=== PATIENT | female | born 1995 | race African-American/Black ===

== ENCOUNTER 2017-04-27 11:02 | Emergency (ER) | payer OTHER ==
[~2017-04-27] VITALS: Ht 157.5 cm; Wt 49.9 kg
[2017-04-27] MEDS ORDERED: PEPCID20 MG PO (11:17)
[2017-04-27] MEDS ORDERED: PREDNISONE 20 M20 MG PO (11:17)
[2017-04-27] MEDS ORDERED: BENADRYL25 MG PO (11:23)
== END 2017-04-27 11:38 | disposition home or self-care (01) ==
LOC: ER 11:02
DX: L23.9 Allergic contact dermatitis, unspecified cause (principal)

== ENCOUNTER 2017-10-18 10:04 | Emergency (ER) | payer OTHER ==
[~2017-10-18] VITALS: Ht 157.5 cm; Wt 41.7 kg
[~2017-10-18 10:04] MED LIST: BENADRYL25 MG PO; PEPCID20 MG PO; PREDNISONE 20 M20 MG PO
[2017-10-18 10:11] VITALS: BP 106/61
[2017-10-18] MEDS ORDERED: SUDAFED 12-HOU120 MG PO (11:04)
== END 2017-10-18 11:09 | disposition home or self-care (01) ==
LOC: ER 10:04
DX: H69.91 Unspecified Eustachian tube disorder, right ear (principal); H61.23 Impacted cerumen, bilateral

== ENCOUNTER 2018-03-26 16:37 | Emergency (ER) | payer OTHER ==
[~2018-03-26] VITALS: Ht 157.5 cm; Wt 42.2 kg
[~2018-03-26 16:37] MED LIST changes: +SUDAFED 12-HOU120 MG PO
[2018-03-26] MEDS ORDERED: BACTRIM DS TAB1 EACH PO (18:30)
[2018-03-26] MEDS ORDERED: IBUPROFEN 600600 M1 PO (18:30)
[2018-03-26] MEDS ORDERED: HYDROCODONE-AP1 EAC6 PO (18:30)
[2018-03-26 18:42] VITALS: BP 110/62
== END 2018-03-26 18:43 | disposition home or self-care (01) ==
LOC: ER 16:37
DX: L02.31 Cutaneous abscess of buttock (principal)

== ENCOUNTER 2018-06-19 02:56 | Emergency (ER) | payer OTHER ==
[~2018-06-19] VITALS: Ht 157.5 cm; Wt 44.0 kg
[~2018-06-19 02:56] MED LIST changes: +BACTRIM DS TAB1 EACH PO; +HYDROCODONE-AP1 EAC6 PO; +IBUPROFEN 600600 M1 PO
[2018-06-19] MEDS ORDERED: NOHOMEMEDICATIONS (03:05)
[2018-06-19 03:28] LABS: URINE BILIRUBIN NEGATIVE (Negative); URINE BLOOD NEGATIVE (Negative); URINE CLARITY CLEAR; URINE COLOR YELLOW; URINE GLUCOSE-RANDOM* NEGATIVE (Negative); URINE KETONES NEGATIVE (Negative); URINE LEUKOCYTES-REFLEX NEGATIVE (Negative); URINE NITRITE-REFLEX NEGATIVE (Negative); URINE PROTEIN (DIPSTICK) 1+ (Negative); URINE SPECIFIC GRAVITY 1.025 (1.005-1.035); URINE UROBILINOGEN 0.2 E.U./dl (0.2-1.0)
[2018-06-19 03:29] LABS: ABSOLUTE NEUTROPHILS 3.3 thou/uL (1.4-8.2); BASOPHILS 0.6 % (0.0-2.0); EOSINOPHILS 1.3 % (0.0-3.0); HEMATOCRIT 39.6 % (37.0-47.0); HEMOGLOBIN 13.1 gm/dL (12.0-15.0); MCH 28.1 pg (26.0-34.0); MCHC 33.1 g/dL (28.0-37.0); MONOCYTES 9.3 % (1.0-8.0); PLATELET COUNT 176 thou/uL (150-400); POLYS 54.8 % (36.0-66.0); RBC 4.66 mil/uL (4.20-5.00); RDW 13.2 % (10.5-14.5)
[2018-06-19 03:35] LABS: BACTERIA-REFLEX 1-9 Few /HPF (None Seen); CASTS None Seen /LPF (None Seen); CRYSTALS None Seen /LPF (None Seen); MUCUS 4-6 Moderate strn/LPF (None Seen); SQUAMOUS 4-10 Moderate /LPF (0-3); URINE RBC 0-2 Rare /HPF (0-2); URINE WBC-REFLEX 0-5 Rare /HPF (0-5)
[2018-06-19 03:35] LABS: ANION GAP 8 mmol/L (7-16); BUN 18 mg/dL (7-18); CALCIUM 9.5 mg/dL (8.5-10.1); CHLORIDE 102 mmol/L (98-107); CO2 28 mmol/L (21-32); CREATININE 0.6 mg/dL (0.6-1.0); GLUCOSE 99 mg/dL (74-106); POTASSIUM 3.7 mmol/L (3.5-5.1); SODIUM 138 mmol/L (136-145)
[2018-06-19 03:40] LABS: AMP/METHAMP Negative (Negative); BARBITURATES Negative (Negative); BENZODIAZEPINES Negative (Negative); COCAINE Negative (Negative); METHADONE Negative (Negative); OPIATES Negative (Negative); PCP Negative (Negative)
[2018-06-19 03:41] LABS: ALBUMIN 4.2 g/dL (3.4-5.0); DIRECT BILIRUBIN < 0.1 mg/dL (<0.1-0.3); SGOT 24 U/L (15-37); SGPT 17 U/L (30-65); TOTAL BILIRUBIN 0.3 mg/dL (<0.1-1.0); TOTAL PROTEIN 7.8 g/dL (6.4-8.2)
[2018-06-19 06:47] VITALS: BP 104/55
== END 2018-06-19 08:31 | disposition home or self-care (01) ==
LOC: ER 02:56
PROVIDERS: Student in an Organized Health Care Education/Training Program
DX: O9A.211 Injury, poisoning and certain other consequences of external causes complicating pregnancy, first trimester (principal); S10.83XA Contusion of other specified part of neck, initial encounter; R10.12 Left upper quadrant pain; Z91.018 Allergy to other foods; Z3A.01 Less than 8 weeks gestation of pregnancy; Y04.2XXA Assault by strike against or bumped into by another person, initial encounter; Y92.89 Other specified places as the place of occurrence of the external cause; Y93.89 Activity, other specified; Y99.8 Other external cause status

== ENCOUNTER 2018-08-01 19:18 | Emergency (ER) | payer OTHER ==
[~2018-08-01] VITALS: Ht 157.5 cm; Wt 44.5 kg
[~2018-08-01 19:18] MED LIST changes: +NOHOMEMEDICATIONS
[2018-08-01] MEDS ORDERED: PRENATAL PO (19:24)
[2018-08-01 20:00] LABS: ABSOLUTE NEUTROPHILS 7.1 thou/uL (1.4-8.2); BASOPHILS 0.4 % (0.0-2.0); EOSINOPHILS 0.6 % (0.0-3.0); HEMATOCRIT 39.2 % (37.0-47.0); HEMOGLOBIN 13.4 gm/dL (12.0-15.0); LYMPHOCYTES 15.5 % (24.0-44.0); MCH 28.8 pg (26.0-34.0); MCV 84.7 fL (80.0-100.0); MONOCYTES 7.6 % (1.0-8.0); PLATELET COUNT 177 thou/uL (150-400); POLYS 75.9 % (36.0-66.0); RBC 4.63 mil/uL (4.20-5.00); RDW 13.1 % (10.5-14.5); WBC 9.3 thou/uL (4.0-11.0)
[2018-08-01 20:02] LABS: URINE BILIRUBIN NEGATIVE (Negative); URINE BLOOD TRACE (Negative); URINE CLARITY CLEAR; URINE COLOR YELLOW; URINE GLUCOSE-RANDOM* NEGATIVE (Negative); URINE KETONES 3+ (Negative); URINE LEUKOCYTES NEGATIVE (Negative); URINE NITRITE NEGATIVE (Negative); URINE PROTEIN (DIPSTICK) TRACE (Negative); URINE SPECIFIC GRAVITY >= 1.030 (1.005-1.035); URINE UROBILINOGEN 0.2 E.U./dl (0.2-1.0)
[2018-08-01 20:05] LABS: CALCIUM 10.2 mg/dL (8.5-10.1); CREATININE 0.5 mg/dL (0.6-1.0); POTASSIUM 3.8 mmol/L (3.5-5.1)
[2018-08-01 20:11] LABS: ALBUMIN 3.9 g/dL (3.4-5.0); TOTAL BILIRUBIN 0.5 mg/dL (<0.1-1.0); TOTAL PROTEIN 7.8 g/dL (6.4-8.2)
[2018-08-01] MEDS ORDERED: REGLAN 5 MG TAB5 MG PO (21:56)
[2018-08-01 22:09] VITALS: BP 103/57
== END 2018-08-01 22:33 | disposition home or self-care (01) ==
LOC: ER 19:18
PROVIDERS: Emergency Medicine
DX: O21.0 Mild hyperemesis gravidarum (principal); Z3A.13 13 weeks gestation of pregnancy

== ENCOUNTER 2018-08-23 11:18 | Emergency (ER) | payer OTHER ==
[~2018-08-23] VITALS: Ht 157.5 cm; Wt 44.5 kg
[2018-08-23 11:18] VITALS: BP 99/54
[~2018-08-23 11:18] MED LIST changes: +PRENATAL PO; +REGLAN 5 MG TAB5 MG PO
[2018-08-23 11:46] LABS: URINE BILIRUBIN NEGATIVE (Negative); URINE BLOOD NEGATIVE (Negative); URINE CLARITY CLEAR; URINE COLOR YELLOW; URINE GLUCOSE-RANDOM* 1+ (Negative); URINE KETONES 3+ (Negative); URINE LEUKOCYTES-REFLEX NEGATIVE (Negative); URINE NITRITE-REFLEX NEGATIVE (Negative); URINE PROTEIN (DIPSTICK) NEGATIVE (Negative); URINE SPECIFIC GRAVITY 1.025 (1.005-1.035); URINE UROBILINOGEN 0.2 E.U./dl (0.2-1.0)
[2018-08-23] MEDS ORDERED: CLINDAMYCIN HC300 MG PO (14:03)
[2018-08-23] MEDS ORDERED: ACETAMINOPHEN-1 EAC1 PO (14:03)
== END 2018-08-23 14:36 | disposition home or self-care (01) ==
LOC: ER 11:18
PROVIDERS: Physician Assistant
DX: O99.711 Diseases of the skin and subcutaneous tissue complicating pregnancy, first trimester (principal); L02.31 Cutaneous abscess of buttock; R19.7 Diarrhea, unspecified; R69 Illness, unspecified; Z91.018 Allergy to other foods; Z3A.00 Weeks of gestation of pregnancy not specified